=== PATIENT | male | born 1975 | race Native Hawaiian/Other Pacific Islander ===

== ENCOUNTER 2018-07-29 14:36 | Inpatient (IN) ==
[2018-07-29] MEDS ORDERED: XYLOCAINE-MPF 1% INJ ONE (15:20)
[2018-07-29] MEDS ORDERED: BOOSTRIX VACCINE IM ONE (15:21)
--- NOTE | 2018-07-29 15:43 | Diag Imaging Result Doc PS360 ---
EXAM: FINGER(S)-RIGHT - 07/29/2018 HISTORY: thumb wound x 2 weeks TECHNIQUE: Right thumb three views COMPARISON: None. FINDINGS: There are erosive/destructive changes along the ventral aspect of the distal phalanx of the thumb. This is suspicious for osteomyelitis of the distal phalanx. There is no fracture or dislocation identified. There is no discrete opaque foreign body identified. There is a small erosion at the medial base of the proximal phalanx of the final. This is of nonspecific age and may relate to inflammatory arthritis. IMPRESSION: Erosive/destructive changes along the ventral aspect of the distal phalanx of the thumb. This is suspicious for osteomyelitis of the distal phalanx. Small erosion at medial base of proximal phalanx of thumb of nonspecific age, possibly related to inflammatory arthritis. Electronically signed by Noe Dillard 07/29/2018 3:41 PM
[2018-07-29] MEDS ORDERED: CLINDAMYCIN 900 MG/NS 900 MG/50 ML IVPB IV ONE (16:24)
[2018-07-29] MEDS ORDERED: VANCOMYCIN 1 GM/NS 1 GM/250 ML IVPB IV ONE ×2 (16:27→18:00)
--- NOTE | 2018-07-29 16:32 | PROVIDER DOCUMENTATION ---
HPI-Rash/Wound/ReCheck - General Chief Complaint: Return W/Comp Stated Complaint: WORK RELATED INJURY Time Seen by Provider: 07/29/18 15:16 Source: patient Allergies/Adverse Reactions: Allergies Allergy/AdvReac Type Severity Reaction Status Date / Time No Known Allergies Allergy Verified 07/29/18 14:48 Home Medications: Home Medication List Medication Instructions Recorded Confirmed Last Taken Type Ibuprofen [Motrin] 800 mg PO Q8H PRN PRN #20 tablet 04/17/15 Unknown Rx Acetaminophen with Codeine 1 each PO Q4H PRN PRN #20 tablet 06/02/15 Unknown Rx [Tylenol with Codeine #3] Meloxicam [Mobic] 7.5 mg PO DAILY #30 tablet 06/02/15 Unknown Rx - History of Present Illness-Dermatology Nature of Presenting Problem: Pt is 43 yo male, states he cut 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 Denies fever. Denies n/v. States pain is severe. Location: reports: hands Timing: reports: still present, other (2 weeks ago) Review of Systems - Adult - REVIEW OF SYSTEMS - ADULT Constitutional: denies: fever Cardiovascular: denies: chest pain Respiratory: denies: shortness of breath Gastrointestinal: denies: nausea, vomiting Integumentary: reports: other (wound R thumb with drainage, swelling, pain) All Other Systems: Reviewed and Negative Past History - Adult - PAST MEDICAL HISTORY-ADULT Review of Records: reports: Old Records Reviewed, Nursing Assessment Review, Medications Reviewed Major Childhood Illnesses: reports: denies history - PRIOR SURGERIES/PROCEDURES Surgical/Procedure History: reports: other (stomach surgery) - IMMUNIZATION STATUS Childhood Immunizations: See Nurse Assessment Flu Vaccine: See Nurse Assessment Physical Exam-General - PHYSICAL EXAM-ADULT Initial Vital Signs Reviewed: Yes (elevated blood pressure) - CONSTITUTIONAL General Appearance: appears well, alert, no apparent distress - EYES Eyes: PERRL/EOMI, pink conjunctivae - HEAD, EARS, NOSE, MOUTH & THROAT HENMT: normocephalic/atraumatic, moist mucous membranes - NECK Neck: supple - RESPIRATORY Respiratory: lungs clear, normal breath sounds, no pleuratic chest pain, no respiratory distress, no accessory muscle use - CARDIOVASCULAR Cardiovascular: regular rate, rhythm, no gallop, no JVD, no murmur - SKIN Integumentary: normal color, normal turgor, warm/dry, ecchymosis, swelling, tenderness, warm, other (R thumb--1cm open wound to anterior distal tuft, purulent drainage, diffuse swelling and ecchymosis, tender, rom limited by pain and swelling) - NEUROLOGIC Neurologic: grossly normal - PSYCHIATRIC Psych/Mental Status: normal mood/affect, oriented x 3 Progress - PLAN OF CARE/RESULTS Progress/Plan/Lab Results: Vital Signs - 8 hr 07/29/18 14:43 07/29/18 16:43 Temperature 98.3 F Pulse Rate 89 Respiratory Rate 20 Blood Pressure 155/96 O2 Sat by Pulse Oximetry 100 Orders Category Date Time Status FINGER(S)-RIGHT [RAD] Stat Exams 07/29/18 15:24 Completed BLOOD CULTURE [BLDCUL] Stat Lab 07/29/18 16:24 Uncollected C REACTIVE PROT QUANT [CHEM] Stat Lab 07/29/18 16:23 Received CBC WITH ELECTRONIC DIFF [HEME] Stat Lab 07/29/18 16:25 Uncollected COMPREHENSIVE METABOLIC PANEL [CHEM] Stat Lab 07/29/18 16:24 Uncollected SED RATE [HEME] Stat Lab 07/29/18 16:23 Received WOUND CULTURE INC GRAM STAIN [RM] Stat Lab 07/29/18 16:24 Uncollected Clindamycin 900 mg/Ns Med 07/29/18 16:24 Active 900 mg in 50 ml IV NOW Diph,Pertuss(Acell),Tet Vac/Pf [Boostrix Vaccine] Med 07/29/18 15:21 Discontinued 0.5 ml IM .ONCE ONE Lidocaine 1% Pf [Xylocaine-Mpf 1%] Med 07/29/18 15:20 Discontinued 5 ml INJ NOW ONE Vancomycin 1 gm/Ns Med 07/29/18 16:27 Active 1 gm in 250 ml IV NOW - XRAY 1 XRAY: Right XRAY Study: Hand XRAY Interpretation: Patient: PRICE GAONA Date: 07/29/18MR#: [id number] - CONSULTS/PCP/HOSPITALIST Notification #1 *Consult/PCP/Hospitalist*: Ysabel WARD Time Discussed: 16:41 Reason/Comments: osteomyelitis, transfer to for poss washout vs amputation Consult Disposition: Admit #2 Consult: Junior Time Discussed: 16:50 Reason/Comments: hospitalist to admit Consult Disposition: Will see in ED Departure - Departure Date of Disposition Decision: 07/29/18 Time of Disposition Decision: 16:50 DIAGNOSIS: Osteomyelitis Disposition: ADMITTED INPATIENT 09 Certified Medical Emergency: Emergent Condition: Stable Referrals and Follow-Ups: None,PCP [Primary Care Provider] - - Critical Care Note This patient required my direct & personal management of CC.: No Attestation - Physician/ SIMONA Attestation Patient care was provided by Advanced Practice Provider:: Yes Advanced Practice Provider documentation review:: The Mid-level provider documentation, treatment plan and medical decision making was reviewed by the physician who agrees with all treatment and medical decision making by the MLP. The physician spent face to face time with patient:: No Advanced Practice Provider documentation review:: Supervising physician onsite and consulted in the evaluation and care of this patient. The physician did not have a face to face encounter with the patient.
[2018-07-29] MEDS ORDERED: MORPHINE IV ONE (16:52)
[2018-07-29] MEDS ORDERED: ZOFRAN IV ONE (16:52)
[2018-07-29 17:09] LABS: BASO# 0.06 X1000 (0.0-0.2); BASO% 0.7 % (0.0-0.8); EOS# 0.23 X1000 (0.0-0.7); EOS% 2.6 % (0.0-10.0); HEMATOCRIT 47.9 % (42.0-52.0); HEMOGLOBIN 15.3 g/dL (14.0-18.0); IMM GRAN# 0.06 X1000 (0.0-0.04); IMM GRAN% 0.7 % (0.0-0.5); LYMPH# 2.01 X1000 (1.2-3.4); LYMPH% 23.1 % (20.5-51.1); MCH 31.5 PG (27-31); MCHC 31.9 g/dL (33-37); MCV 98.6 FL (81-99); MONO# 0.79 X1000 (0.11-0.59); MONO% 9.1 % (1.7-9.3); NEUT# 5.54 X1000 (1.4-6.5); NEUT% 63.8 % (42.2-75.2); PLT 438 X1000 (130-400); RBC 4.86 XMIL (4.7-6.1); RDW 12.8 % (11.5-14.5); WBC 8.69 X1000 (4.8-10.8)
[2018-07-29] MEDS ORDERED: VANCOMYCIN IV PER PHARMACY MISC SCH (17:15)
[2018-07-29 17:17] LABS: AGAP 15; ALBUMIN 4.4 g/dL (3.5-5.0); ALKALINE PHOSPHATASE 93 U/L (32-122); BUN 13 mg/dL (8-22); CALCIUM 10.5 mg/dL (8.8-10.2); CHLORIDE 102 mmol/L (98-107); COSMO 291; CREATININE 0.9 mg/dL (0.7-1.2); ESTIMATED GFR > 60; GLUCOSE 144 mg/dL (70-104); GOT 24 U/L (10-34); GPT 51 U/L (10-44); POTASSIUM 4.5 mmol/L (3.5-5.1); SODIUM 145 mmol/L (136-145); TCO2 28 mmol/L (25-35); TOTAL PROTEIN 8.6 g/dL (6.3-8.3)
[2018-07-29] MEDS ORDERED: ZOFRAN IV PRN (19:36)
[2018-07-29] MEDS: NS 1,000 ML IV SCH (23:20)
[2018-07-29] MEDS: OFIRMEV 1000 MG/ISOTONIC SOLN 1,000 MG/100 ML BOTTLE IV SCH ×3 (23:27→23:33)
[2018-07-29] MEDS: ZOSYN 3.375 GM in NS 50 ML IV SCH ×2 (23:28→23:30)
[2018-07-29] MEDS: TORADOL IV SCH (23:28)
[2018-07-29] MEDS: PRILOSEC PO SCH (23:48)
--- NOTE | 2018-07-30 00:47 | HISTORY AND PHYSICAL ---
CHIEF COMPLAINT: Infection of the right thumb. HISTORY OF PRESENT ILLNESS: This is a 43-year-old male, with an unremarkable past medical history, who came to the emergency department complaining of right thumb. 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 He received apparently some antibiotics at the company where he works. Apparently, he reported he was not allowed to seek for medical attention. Today, he comes because the pain is unbearable. He denies any fever, denies any chills. He states the pain is very bad. On evaluation in the ER, revealed possible osteomyelitis of the right thumb. PAST MEDICAL HISTORY: Unremarkable. PAST SURGICAL HISTORY: None. FAMILY HISTORY: Noncontributory. ALLERGIES: The patient denies any allergies. REVIEW OF SYSTEMS: Eleven systems were reviewed, and all symptoms are related to H and P. PHYSICAL EXAMINATION: VITAL SIGNS: Temperature 98.3 degrees, heart rate 77, respiratory rate 18, blood pressure 123/80, oxygen saturation 100% on room air. GENERAL: This is a 43-year-old male, lying in bed, in no acute distress. HEENT: Head is normocephalic, atraumatic. NECK: No JVD noted. No carotid bruits. No lymphadenopathy. No thyromegaly. CARDIOVASCULAR: S1-S2 heard. No murmurs, gallops, or rubs. Regular rate and rhythm. RESPIRATORY: Clear bilaterally to auscultation. No work of breathing or using accessory muscles. ABDOMEN: Soft. Nontender to palpation. Bowel sounds present. No organomegaly. EXTREMITIES: The right thumb is covered by a dressing. It is very painful to palpation. No drainage coming out. LABORATORY DATA: White cell count is normal. CBC and BMP are normal. Finger x-ray showed erosive and destructive changes along the ventral aspect of the distal phalanx of the thumb, suspicious of osteomyelitis. ASSESSMENT AND PLAN: 1. Possible osteomyelitis of the right thumb. The patient is going to be transferred to [facility] for evaluation for an orthopedic doctor. We are going to order an MRI of that thumb to confirm the diagnosis. There is a possibility that this patient needs to be amputated. We will leave that decision to Orthopedics. From a medical standpoint, we will start on vancomycin and Zosyn. We will provide also pain medication, and will monitor this patient closely. 2. Blood culture has been drawn. cc: Octavio Moreno MD
--- NOTE | 2018-07-30 03:33 | CONSULTATION ---
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 Patient works [employer] in [place]. States he has had worsening symptoms, continued swelling and drainage. He complains the pain as being severe. He denies any fever. He presented to [facility] and underwent evaluation, and x-rays were obtained, and revealed suspicion for osteomyelitis to the distal phalanx. Given the patient's clinical and radiographic findings, he was transferred to [facility] for further orthopedic evaluation and treatment. HOME MEDICATIONS: None. ALLERGIES: No known drug allergies. PAST MEDICAL HISTORY: None. PAST SURGICAL HISTORY: Stomach surgery as a child. PHYSICAL EXAMINATION: Patient is awake, alert, and cooperative with exam. His right thumb dressing was removed. He has approximately a centimeter wound along the volar radial aspect of his thumb, just about mid level to the distal phalanx. He has significant purulent drainage, significant swelling about the thumb, significant tenderness to palpation. He has paresthesia along the thumb. He has significant pain with any movement of the thumb. He is able to minimally flex and extend his thumb. The swelling extends down to the base of the proximal flexion crease. On the remaining fingers, he is able to flex and extend his fingers. RADIOLOGY: X-rays were reviewed and did reveal some erosive changes along the ventral aspect of the distal phalanx of the thumb suspicious for osteomyelitis. IMPRESSION: Infection, right thumb with possible osteomyelitis to the distal phalanx. PLAN: At this point, discussed treatment options with the patient. At this time, he has been placed on IV antibiotics appeared. Will plan on proceeding with incision and drainage of his thumb tomorrow. Risks and benefits of surgery were explained, including the risks of anesthesia, , bleeding, infection, failure to relieve pain, postoperative stiffness, nerve injury, blood clots, and other imponderables. All questions were answered. The patient agrees to treatment plan. cc: Uli Grady MD
[2018-07-30] MEDS: ZOSYN 3.375 GM in NS 50 ML IV SCH ×3 (03:44→10:34)
[2018-07-30] MEDS: OFIRMEV 1000 MG/ISOTONIC SOLN 1,000 MG/100 ML BOTTLE IV SCH ×5 (05:39→23:00)
[2018-07-30] MEDS: TORADOL IV SCH ×4 (05:40→23:00)
[2018-07-30 07:04] LABS: BASO# 0.08 X1000 (0.0-0.2); BASO% 0.8 % (0.0-0.8); EOS# 0.44 X1000 (0.0-0.7); EOS% 4.5 % (0.0-10.0); HEMATOCRIT 41.2 % (42.0-52.0); HEMOGLOBIN 13.1 g/dL (14.0-18.0); IMM GRAN# 0.08 X1000 (0.0-0.04); IMM GRAN% 0.8 % (0.0-0.5); LYMPH% 24.5 % (20.5-51.1); MCH 31.7 PG (27-31); MCHC 31.8 g/dL (33-37); MCV 99.8 FL (81-99); MONO# 1.11 X1000 (0.11-0.59); MONO% 11.3 % (1.7-9.3); NEUT% 58.1 % (42.2-75.2); PLT 395 X1000 (130-400); RBC 4.13 XMIL (4.7-6.1); RDW 12.8 % (11.5-14.5); WBC 9.81 X1000 (4.8-10.8)
[2018-07-30] MEDS: NS 1,000 ML IV SCH (07:43)
[2018-07-30 07:48] LABS: AGAP 9; BUN 13 mg/dL (8-22); CALCIUM 8.7 mg/dL (8.8-10.2); CHLORIDE 102 mmol/L (98-107); COSMO 280; ESTIMATED GFR > 60; GLUCOSE 113 mg/dL (70-104); POTASSIUM 4.8 mmol/L (3.5-5.1); SODIUM 140 mmol/L (136-145); TCO2 29 mmol/L (25-35)
[2018-07-30] MEDS: PRILOSEC PO SCH (09:07)
--- NOTE | 2018-07-30 10:32 | Diag Imaging Result Doc PS360 ---
MRI UPPER EXT W/WO CONT-RIGHT - 07/30/2018 INDICATION: osteomyelitis TECHNIQUE: MRI right hand without and with intravenous contrast COMPARISON: X-ray series from 07/29/2018 FINDINGS: At the pad of the distal phalanx of the thumb, there is a small irregular soft tissue fluid collection extending all the way to the surface of the distal phalanx. This measures about 15 x 10 mm maximally. There is surrounding soft tissue cellulitis with enhancement. The distal phalanx of the thumb demonstrates diffuse hyperintense signal and enhancement. In addition, there is cortical erosion of the volar surface adjacent to the fluid collection. No fracture or dislocation. The proximal phalanx is uninvolved. The tendons appear grossly normal. IMPRESSION: Osteomyelitis of the distal phalanx of the thumb. Adjacent periosteal abscesses. Soft tissue cellulitis. Electronically signed by Adriano Pulido 07/30/2018 10:30 AM
[2018-07-30] MEDS ORDERED: D5 1/2 NS + KCL 20 MEQ 1,000 ML IV SCH (11:15)
--- NOTE | 2018-07-30 11:17 | PROGRESS NOTE ---
DATE: 07/30/2018 SUBJECTIVE: This morning, Mr. Hansen refers to be doing fairly okay. Still having some pain in the right thumb. OBJECTIVE: Vital Signs: Blood pressure is 115/64, pulse is 55, respirations are 21, temperature is 98.5 degrees. General Examination: Mr. Hansen is a 43-year-old, gentleman. He is in bed, no distress. HEENT: Mucosa is pink and moist. Anicteric. Acyanotic. Neck: Supple. Chest: Clear to auscultation. There were no crepitations, no rhonchi. Cardiovascular: Regular rate and rhythm. No murmurs, no rubs, no gallops. Abdomen: Soft, nontender. Bowel sounds present. Extremities: No pedal edema. BAND TACKER: The patient is awake, alert, and oriented. Musculoskeletal: The right thumb is remarkably more swollen generally. There is a small open wound on the ventral aspect of the thumb. There is a small purulent discharge coming out and it is remarkably tender to touch. Laboratory Data: Has been reviewed. WBC is 9.81, hemoglobin is 13.1, platelet count of 395,000. Chemistry is also reviewed, unremarkable. An x-ray of the finger did show erosive destruction along the ventral aspect of the distal phalanx of the thumb, suspicious for osteomyelitis. An MRI of the extremity shows osteomyelitis of the distal phalanx with the thumb. There is also adjacent subperiosteal abscess. ASSESSMENT: 1. Osteomyelitis of the right thumb associated with periosteal abscess and cellulitis. Patient is currently on intravenous antibiotics (vancomycin and Zosyn). Has been evaluated by orthopedics and there is a plan for surgical exploration tomorrow. 2. Tobacco abuse. Patient has been counseled. 3. Mild clinical volume depletion. Patient is on intravenous hydration. cc: Bennie Leon MD
[2018-07-30] MEDS: VANCOMYCIN 1,600 MG in NS 250 ML IV SCH ×2 (11:22→23:50)
[2018-07-30] MEDS ORDERED: XYLOCAINE-MPF 2% ONE (12:18)
[2018-07-30] MEDS ORDERED: DIPRIVAN 1% ONE (12:20)
[2018-07-30] MEDS ORDERED: NEOSPORIN G.U. IRRIGANT ONE (13:00)
[2018-07-30] MEDS ORDERED: FENTANYL ONE (13:56)
[2018-07-30] MEDS: DILAUDID ONE ×4 (14:31→14:59)
[2018-07-30] MEDS ORDERED: MORPHINE IV PRN (15:55)
[2018-07-30] MEDS ORDERED: ZOFRAN PO PRN (15:55)
[2018-07-30] MEDS: OXY IR PO PRN ×2 (16:27→23:14)
[2018-07-30] MEDS: PERIDEX MT SCH (22:56)
--- NOTE | 2018-07-31 01:43 | OPERATIVE NOTE ---
PROCEDURE DATE: 07/30/2018 PREOPERATIVE DIAGNOSIS: Infection, with osteomyelitis of the distal phalanx, the right thumb. POSTOPERATIVE DIAGNOSIS: Infection, with osteomyelitis of the distal phalanx, the right thumb. PROCEDURE: Incision and drainage, right thumb. SURGEON: Ysabel. DOOR CAPTAIN: Gelnny Kaplan. ANESTHESIA: General. IV FLUIDS: 500 mL lactated Ringer's. ESTIMATED BLOOD LOSS: 5 mL. TOURNIQUET TIME: 25 minutes at 250 mmHg. COMPLICATIONS: None. INDICATION: The patient is a pleasant 43-year-old male, status post cut to his right thumb approximately 2 weeks ago while at work at [employer] in [place]. He has had worsening swelling and drainage from his right thumb. He presented to the emergency room yesterday. He was admitted to the hospital, and placed on IV antibiotics. An orthopedic consultation was requested. X-rays revealed some erosion on the volar aspect of the distal phalanx, suspicious for osteomyelitis, which was confirmed with MRI results. A recommendation to proceed with incision and drainage was offered. Risks and benefits of surgery were explained, including the risks of anesthesia, , bleeding, infection, failure to relieve pain, postoperative stiffness, nerve injury, blood clots, and other imponderables. All questions were answered. The patient agreed with the treatment plan. DETAILS OF OPERATION: The patient was taken to the operating room, placed supine on the operating table. Once adequate anesthesia was obtained, the patient's right upper extremity was subsequently prepped and draped in the usual sterile fashion. After elevation of the right upper extremity, the tourniquet was inflated to 250 mmHg. The patient had a wound on the volar radial aspect of the pulp, just distal to the DIP joint. There was purulent drainage at this site. A Kavon-type incision was made in standard fashion, extending distally and proximally over the proximal phalanx as well. Intraoperative cultures were obtained. Patient had significant necrotic tissue in the volar pulp. It tracked to the distal phalanx, and had some cortical erosion and small bone fragments. This was debrided at the bone. After this had been performed, copious irrigation performed with antibiotic irrigation, as well as a Vashe irrigation. After this had been performed, a small iodoform packing was packed into the wound site. The skin was loosely reapproximated with 4-0 nylon. Adaptic, sterile 4x4s, Webril, Florencio, and Mitch wrap was applied to the right upper extremity. The patient tolerated the procedure well, with no complications. Transferred to the recovery room in stable condition. cc: Uli Grady MD
--- NOTE | 2018-07-31 04:46 | INFECTIOUS DISEASE CONSULT REP ---
DATE: 07/30/2018 CONCLUSION: The patient has a presumptive methicillin-resistant Staph aureus, right thumb osteomyelitis and associated bacteremia. RECOMMENDATIONS: I agree with decision to treat the patient with vancomycin. The newest recommendation is to treat for methicillin-resistant Staph aureus osteomyelitis for a total of 8 weeks, which I plan on doing. DISCUSSION: The patient was unable to provide a history, and there was no additional history in the computer. 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 This happened approximately 2 weeks ago. His thumb became swollen, red, and painful. He underwent surgery by Dr. Grady today on the thumb. A culture taken from the patient's thumb and from the blood is growing MRSA. The patient's CBC shows a white count of 9810, hemoglobin 13.1, and platelet count 395,000. Creatinine is 1. GFR is greater than 60. The ALT is 51. MRI of the right hand shows distal osteomyelitis of the right thumb. MEDICATIONS: The patient is not on any home medications. ALLERGIES: He has no known drug allergies. PAST MEDICAL HISTORY: Unknown date. PAST SURGICAL HISTORY: The patient told me that he had appendicitis, and that was the reason for the surgery. PHYSICAL EXAMINATION: Vital Signs: Temperature is 98 degrees, pulse is 62, respirations 14, blood pressure 138/72. Patient is 5 feet 6 inches tall, and weighs 159 pounds. General: This is a fairly healthy-appearing, middle-aged male. He is complaining that he is having pain in his thumb. Head/eyes/ears/nose/throat: He can hear my spoken words and see near objects. Neck: No stiffness. Lungs: Clear to auscultation. Cardiovascular: Regular heart rate. Abdomen: Soft and not tender. Extremities: The right thumb has a dressing around it. The dressing is intact. Neurologic: The patient was lethargic. He did not answer questions. He did move his extremities to request. There was no tremor. Thank you for the consult. cc: Temo Hughes MD MTDD
[2018-07-31] MEDS: TORADOL IV SCH ×5 (05:13→23:28)
[2018-07-31] MEDS: OXY IR PO PRN ×3 (05:13→16:51)
[2018-07-31] MEDS: OFIRMEV 1000 MG/ISOTONIC SOLN 1,000 MG/100 ML BOTTLE IV SCH ×5 (05:15→23:28)
[2018-07-31 06:17] LABS: BASO# 0.08 X1000 (0.0-0.2); EOS% 3.9 % (0.0-10.0); HEMATOCRIT 42.1 % (42.0-52.0); HEMOGLOBIN 13.6 g/dL (14.0-18.0); IMM GRAN# 0.09 X1000 (0.0-0.04); IMM GRAN% 1.2 % (0.0-0.5); LYMPH# 1.31 X1000 (1.2-3.4); LYMPH% 17.2 % (20.5-51.1); MCH 32.1 PG (27-31); MCHC 32.3 g/dL (33-37); MCV 99.3 FL (81-99); MONO# 0.74 X1000 (0.11-0.59); MONO% 9.7 % (1.7-9.3); MPV 10.2 FL (7.4-10.4); PLT 361 X1000 (130-400); RBC 4.24 XMIL (4.7-6.1); RDW 12.6 % (11.5-14.5); WBC 7.62 X1000 (4.8-10.8)
[2018-07-31 06:37] LABS: AGAP 10; BUN 9 mg/dL (8-22); CHLORIDE 104 mmol/L (98-107); COSMO 283; CREATININE 0.8 mg/dL (0.7-1.2); ESTIMATED GFR > 60; GLUCOSE 117 mg/dL (70-104); POTASSIUM 3.9 mmol/L (3.5-5.1); SODIUM 142 mmol/L (136-145); TCO2 28 mmol/L (25-35)
--- NOTE | 2018-07-31 08:15 | PROGRESS NOTE ---
DATE: 07/31/2018 SUBJECTIVE: Mr. Hansen is a 43-year-old male, who is postoperative day 1 from a right thumb incision and drainage. He is complaining of some throbbing pain at this time, but overall he is doing well. OBJECTIVE: General: He is a well developed, well nourished male. He is alert, oriented, and cooperative with the examination. He is in no acute distress. Vital Signs: Stable. He is afebrile. Extremities: His right thumb dressing is clean, dry, and intact. LABS: His Gram stain revealed gram-positive cocci. His white count is 7.2. ASSESSMENT: Stable postoperative day 1 from a right thumb incision and drainage. PLAN: We will have him keep his dressing on, and we will plan to change dressing tomorrow. We will have him continue his IV antibiotics per Dr. Hughes. Dictated by KENDAL Morin for Uli Grady MD cc: KENDAL Morin MD
[2018-07-31] MEDS: PRILOSEC PO SCH (08:56)
[2018-07-31] MEDS: PERIDEX MT SCH ×2 (08:58→23:29)
[2018-07-31] MEDS: VANCOMYCIN 1,600 MG in NS 250 ML IV SCH (12:39)
--- NOTE | 2018-07-31 14:18 | INFECTIOUS DISEASE PROGRESS NO ---
DATE: 07/31/2018 PRESENT ILLNESS: The patient has a methicillin-resistant Staph aureus, right thumb osteomyelitis and an associated methicillin-resistant Staph aureus bacteremia. MEDICATIONS: The patient is receiving vancomycin. The first day of treatment with vancomycin is the first day that the patient's repeat blood cultures are sterile. PHYSICAL EXAMINATION: Vital Signs: Temperature is 99, pulse 67, respirations 20, blood pressure 131/79. Generally, this is a fairly healthy-appearing, middle-aged male. He is in no acute distress. Head, eyes, ears, nose, and throat: He can hear my spoken words and see near objects. He does not have any white coating on his tongue. Neck: No meningismus. Lungs clear to auscultation. Cardiovascular: Heart rate is regular. Abdomen soft and nontender. Extremities: The patient's right thumb has a large dressing around it. The dressing is intact. Neurologic: Patient is alert. He can move his extremities. There is no tremor. LABORATORY DATA AND X-RAY: There is no new radiographic study. The patient's CBC shows a white count of 7620, hemoglobin 13.6, and platelet count 361,000. Creatinine is 0.8. GFR is greater than 60. ASSESSMENT AND PLAN: The patient has methicillin-resistant Staphylococcus aureus osteomyelitis and bacteremia. My plan is to continue vancomycin. I am also ordering now repeat blood cultures, and I have also ordered an echocardiogram to be done to check for vegetations on the valves which would indicate endocarditis. 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 cc: Temo Hughes MD
--- NOTE | 2018-07-31 15:39 | PROGRESS NOTE ---
DATE: 07/31/2018 SUBJECTIVE: This morning Mr. Hansen refers to be doing fairly okay. Denies any complaint except some pains in his thumb. OBJECTIVE: Vital Signs: Blood pressure is 131/79, pulse is 67, respirations 20 , temperature is 99.0. General: Mr. Hansen is a 43-year-old gentleman. He was in bed in no distress. Mucosa is pink and moist. Anicteric. Acyanotic. Neck: Supple. Chest: Good air entry bilaterally. There are no crepitations, no rhonchi. Cardiovascular: Regular rate and rhythm. No murmurs, no rubs, no gallops. Abdomen: Soft, nontender. Bowel sounds are present. Extremities: No pedal edema. Distal pulses are present. Central Nervous System: Patient is awake, alert, oriented. There is no focal neurological deficit. Musculoskeletal: The right thumb is currently in sterile dressing after the surgery. LABORATORY DATA: WBC 7.62, hemoglobin is 13.6, platelet count of 361,000. Chemistry is also reviewed. It is completely normal. Review of the surgical note yesterday: An incision and drainage of the right thumb was done. There was also some debridement at the bone, as per the surgical notes. Blood cultures have been positive, 2/2 gram positive cocci. The right thumb shows MRSA. The surgical specimen also showing gram positive cocci, likely MRSA as well. Blood cultures have been repeated today. ASSESSMENT: 1. Sepsis secondary to osteomyelitis of the right thumb 2. MRSA bacteremia, source from the right thumb osteomyelitis. The patient is on IV vancomycin as per pharmacy protocol and ID has been consulted. 3. Osteomyelitis of the right thumb associated with periosteal abscess and cellulitis. The patient is status post I D with bone debridement as well. 4. Tobacco abuse. Patient has been counseled. 5. Clinical volume depletion, improved. PLAN: So, in general, I think Mr. Hansen is doing fairly okay. Today is day #1 post I D of the right thumb osteomyelitis. Blood cultures and wound cultures are all showing MRSA. The patient is on IV antibiotics. Blood cultures have been repeated. We will wait to see the repeat culture. If it is negative, I think patient will would need probably a PICC line for an extended IV antibiotics for the osteomyelitis and the bacteremia. cc: Bennie Leon MD MTDD
[2018-07-31] MEDS: DILAUDID IV PRN (23:29)
[2018-08-01] MEDS: VANCOMYCIN 1,600 MG in NS 250 ML IV SCH ×3 (00:32→23:24)
[2018-08-01] MEDS: OFIRMEV 1000 MG/ISOTONIC SOLN 1,000 MG/100 ML BOTTLE IV SCH ×4 (05:22→23:24)
[2018-08-01] MEDS: TORADOL IV SCH ×2 (05:23→12:21)
[2018-08-01] MEDS: DILAUDID IV PRN ×4 (05:23→18:03)
[2018-08-01 06:05] LABS: BASO# 0.09 X1000 (0.0-0.2); BASO% 1.5 % (0.0-0.8); EOS# 0.26 X1000 (0.0-0.7); EOS% 4.3 % (0.0-10.0); HEMATOCRIT 38.1 % (42.0-52.0); HEMOGLOBIN 12.3 g/dL (14.0-18.0); IMM GRAN# 0.06 X1000 (0.0-0.04); LYMPH# 1.44 X1000 (1.2-3.4); LYMPH% 23.8 % (20.5-51.1); MCH 31.8 PG (27-31); MCHC 32.3 g/dL (33-37); MCV 98.4 FL (81-99); MONO# 0.66 X1000 (0.11-0.59); MONO% 10.9 % (1.7-9.3); MPV 9.7 FL (7.4-10.4); NEUT# 3.53 X1000 (1.4-6.5); NEUT% 58.5 % (42.2-75.2); PLT 372 X1000 (130-400); RBC 3.87 XMIL (4.7-6.1); RDW 12.2 % (11.5-14.5); WBC 6.04 X1000 (4.8-10.8)
[2018-08-01 06:20] LABS: AGAP 12; BUN 11 mg/dL (8-22); CALCIUM 8.3 mg/dL (8.8-10.2); CHLORIDE 103 mmol/L (98-107); COSMO 280; CREATININE 0.7 mg/dL (0.7-1.2); ESTIMATED GFR > 60; GLUCOSE 160 mg/dL (70-104); POTASSIUM 3.8 mmol/L (3.5-5.1); SODIUM 139 mmol/L (136-145); TCO2 24 mmol/L (25-35)
--- NOTE | 2018-08-01 09:52 | INFECTIOUS DISEASE PROGRESS NO ---
DATE: 08/01/2018 PRESENT ILLNESS: The patient has a right thumb osteomyelitis with an associated methicillin-resistant Staph aureus bacteremia. MEDICATIONS: He is receiving IV vancomycin, per pharmacy dosing. Day 1 of treatment will be his first day of sterile blood cultures. PHYSICAL EXAM: Vital Signs: Temperature is 98.5 degrees, pulse rate 62, respiratory rate 18, blood pressure 113/58, O2 saturation is 100% on room air. General: This is a fairly healthy-appearing, middle-aged gentleman, who is lying in the bed drowsy and lethargic in no acute distress. HEENT: Atraumatic, normocephalic. Oral mucous membranes are pink and moist. Conjunctivae are pink. Neck: Supple. Trachea is midline. Cardiovascular: Heart rate is regular. Radial and pedal pulses are +2 bilaterally. Respiratory: Lung sounds are clear to auscultation. Abdomen: Soft, round, and nontender. Bowel sounds are active. Integumentary: Skin is warm and dry. There is a dressing to the right thumb and hand without any notable edema or erythema surrounding and no drainage on the dressing. Neurologic: He is drowsy and lethargic, but arousable and oriented, able to ambulate independently. LABORATORY AND X-RAY: Today his white count is 6.04, hemoglobin 12.3 platelet count 372,000. Creatinine is 0.7. Estimated GFR is greater than 60. His blood and right thumb cultures have both grown methicillin-resistant Staph aureus. There is an another culture with the same bacteria presumed on preliminary report. There is 1 set of blood cultures that was drawn yesterday and it is preliminary. No imaging reports today. ASSESSMENT AND PLAN: Mr. Hansen has a right thumb methicillin-resistant Staphylococcus aureus infection with an associated bacteremia. He is receiving vancomycin which we will continue at this point. We are awaiting results of the final blood cultures to be negative for start date of treatment. There is also a pending echocardiogram to check for vegetation. These plans have been discussed with and recommended by Dr. Hughes. COMORBIDITIES: Unremarkable. Dictated by TESSA Shafer for Temo Hughes MD This chart was documented by, TESSA Shafer and accurately reflects the services performed, treatment plan and medical decisions as attested by the providers signature Temo Hughes MD. cc: Temo Hughes MD MTDD
--- NOTE | 2018-08-01 10:32 | ECHO REPORT ---
ORDER DATE: 07/31/2018 ECHOCARDIOGRAPHIC MEASUREMENTS: 1. Left ventricular end-diastolic diameter 4.6. 2. End-systolic diameter 2.5. 3. Septal thickness 0.8. 4. Posterior wall thickness 0.8. 5. Aortic root 2.6. 6. Left atrium 3.1. SUMMARY: 1. Adequate quality study. 2. Aortic valve is trileaflet and opens normally on 2-dimensional images. Peak gradient across the aortic valve is approximately 10 mmHg. Mitral, tricuspid, and pulmonic valves are without evidence of structural abnormality with mild tricuspid regurgitation and very mild pulmonic insufficiency. The estimated systolic PA pressure by Doppler is 30 to 35 mmHg. Aortic root is normal in size. 3. Normal left ventricular chamber size and wall thickness demonstrated. Estimated left ventricular ejection fraction appears to be at least 65%. No regional wall motion abnormalities are evident. Left atrium, right atrium, right ventricle are normal in size with normal right ventricular systolic function. 4. No pericardial effusion. 5. Appearance of inferior vena cava suggests normal central venous pressure. CONCLUSIONS: 1. Adequate quality study. 2. Mild tricuspid regurgitation with estimated systolic PA pressure 30 35 mmHg. 3. Normal left ventricular function without regional wall motion abnormality evident. cc: MD Temo Beck MD
[2018-08-01] MEDS: PRILOSEC PO SCH (11:00)
[2018-08-01] MEDS: PERIDEX MT SCH ×2 (11:01→23:25)
--- NOTE | 2018-08-01 14:04 | PROGRESS NOTE ---
DATE: 08/01/2018 SUBJECTIVE: The patient is a 43-year-old male who is 2 days status post I and D for a osteomyelitis of the right thumb. He is currently resting comfortably. PHYSICAL EXAMINATION: The patient is afebrile. His right upper extremity dressing was changed. He continues with some purulent drainage from the wound. Some of the iodoform packing was removed. It was then cleansed and redressed. He continues with paresthesia along the tip of his thumb. He has very minimal to no movement of the thumb and diffuse swelling. LABORATORY DATA: Wound culture revealed MRSA, as well as his blood cultures. IMPRESSION: Postoperative day #2 status post incision and debridement of right thumb for osteomyelitis. PLAN: At this point, the patient will continue with his IV antibiotics per Dr. Hughes. Will change his dressing on Saturday. cc: Uli Grady MD
--- NOTE | 2018-08-01 16:05 | PROGRESS NOTE ---
DATE: 08/01/2018 SUBJECTIVE: This morning Mr. Hansen refers to be doing fairly okay. Did not really have any complaints, except for some pains in the right thumb. OBJECTIVE: Vital Signs: Stable blood pressure is 136/78, pulse is 62, respiration is 19 and temperature is 98.5 degrees. The patient was saturating 99% on room air. General Exam: Mr. Hansen is a 43-year-old gentleman. He is in bed, no distress. HEENT: Mucosa is pink and moist. Anicteric. Acyanotic. Neck: Supple. Chest: Clear to auscultation. Cardiovascular: Regular rate and rhythm. There were no murmurs, no rubs, no gallops. Abdomen: Soft, nontender. Bowel sounds present. Extremities: No pedal edema. CLINICAL REGISTERED NURSE: Patient is awake, alert, oriented. There is no focal neurological deficit. Musculoskeletal: The right thumb is still in sterile dressing. LABORATORY DATA: WBC is 6.04, hemoglobin is 12.3, platelet count of 372. Chemistry is also reviewed, which is completely normal. The blood culture is positive 2/2 MRSA. The right thumb, both the swab and the surgical specimen, is positive for MRSA as well. ASSESSMENT: 1. Sepsis on presentation secondary to right thumb osteomyelitis. 2. Methicillin-resistant Staphylococcus aureus bacteremia from the right thumb osteomyelitis. 3. Osteomyelitis of right thumb associated with periosteal abscess and cellulitis. The patient is status post incision, drainage, and bone debridement. Today is day 2 postoperatively. The patient is being seen by Orthopedics and Infectious Disease as well. 4. Tobacco abuse. Patient has been counseled. 5. Clinical volume depletion, improved. PLAN: So, in general, today is day 2 post I and D and bone debridement for the osteomyelitis. The patient is also on vancomycin; today is day 3. He seems to be clinically stable. Blood cultures have been repeated since yesterday. We are pending for the final report and then get a PICC line for outpatient therapy. cc: Bennie Leon MD
[2018-08-01] MEDS: OXY IR PO PRN (23:25)
[2018-08-02] MEDS: DILAUDID IV PRN ×6 (00:25→21:52)
[2018-08-02] MEDS: OFIRMEV 1000 MG/ISOTONIC SOLN 1,000 MG/100 ML BOTTLE IV SCH ×3 (06:00→17:48)
[2018-08-02] MEDS: PRILOSEC PO SCH (08:07)
[2018-08-02] MEDS: PERIDEX MT SCH ×3 (08:08→21:54)
--- NOTE | 2018-08-02 09:25 | PROGRESS NOTE ---
DATE: 08/02/2018 SUBJECTIVE: This morning, Mr. Hansen refers to be doing a whole lot better. Denies any complaints. No fever. OBJECTIVE: Vital Signs: Blood pressure is 129/75, pulse is 68, respirations 16, temperature is 98.4. On general exam, Mr. Hansen is a 43-year-old -[place] gentleman. He was in bed in no distress. Mucosa is pink and moist. Anicteric. Acyanotic. Neck is supple. Chest: Good air entry bilaterally. There were no crepitations. No rhonchi. Cardiovascular: Regular rate and rhythm. No murmurs, no rubs, no gallops. GI: Abdomen was soft, nontender. Bowel sounds present. Extremities: No pedal edema. FLORIST MANAGER: Patient is awake, alert, and oriented. Musculoskeletal: The right thumb is still in a sterile dressing. LABORATORY DATA: None for today. MICROBIOLOGY DATA: Blood cultures have come back 48 hours negative after the first positive cultures. ASSESSMENT: 1. Sepsis on presentation secondary to right thumb skin, soft tissue, and bone infection. 2. Methicillin-resistant Staphylococcus aureus bacteremia. Source of infection is from the right thumb osteomyelitis. The patient is currently on vancomycin. Repeat blood cultures have been negative. 3. Osteomyelitis of the right thumb associated with periosteal abscess and cellulitis. Patient is status post incision and drainage with bone debridement. Today is date 3 postop. Orthopedics is on board. 4. Tobacco abuse. Patient has been counseled. 5. Clinical volume depletion, improved. In general, Mr. Wall is doing fairly okay. He is status post day 3 of I and D of the right thumb with some bone removal as well. So far, the bone culture as well as the blood culture shows MRSA. Repeat blood cultures have been negative. We consult PICC line team to put in a PICC line for long-term antibiotic therapy. cc: Bennie Leon MD
[2018-08-02 12:23] LABS: INR 0.88; PROTIME 12.7 Seconds (11.0-16.0)
[2018-08-02] MEDS: VANCOMYCIN 1,600 MG in NS 250 ML IV SCH (12:29)
--- NOTE | 2018-08-02 13:27 | PROGRESS NOTE ---
DATE: 08/02/2018 SUBJECTIVE: Mr. Hansen is a 43-year-old male, who underwent an irrigation debridement of his right thumb 2 days ago. He has no new complaints. OBJECTIVE: He is a well-developed, well-nourished male. He is alert and cooperative with exam. He appears comfortable. His dressing is clean, dry, and intact. ASSESSMENT: Stable right thumb incision and drainage. PLAN: We will plan on continuing his IV antibiotics. We will plan on changing his dressing either tomorrow or Saturday. cc: Ethan Le MD
[2018-08-02] MEDS: OXY IR PO PRN ×2 (13:43→17:48)
[2018-08-03] MEDS: OXY IR PO PRN ×3 (00:56→17:27)
[2018-08-03] MEDS: VANCOMYCIN 1,600 MG in NS 250 ML IV SCH ×3 (00:57→23:34)
[2018-08-03] MEDS: OFIRMEV 1000 MG/ISOTONIC SOLN 1,000 MG/100 ML BOTTLE IV SCH ×4 (00:57→17:27)
[2018-08-03] MEDS ORDERED: NS 500 ML IV SCH (01:00)
[2018-08-03] MEDS: DILAUDID IV PRN ×6 (05:34→23:36)
[2018-08-03] MEDS: PRILOSEC PO SCH (09:05)
[2018-08-03] MEDS: PERIDEX MT SCH ×2 (09:05→20:13)
--- NOTE | 2018-08-03 10:59 | PROGRESS NOTE ---
DATE: 08/03/2018 SUBJECTIVE: Mr. Hansen is a 43-year-old male, a patient of Dr. Grady, who has osteomyelitis of his thumb. He has no complaints. States he is doing well. OBJECTIVE: He is a well-developed, well-nourished male. He is alert, oriented, and cooperative with the exam. He is very comfortable. His dressing is clean, dry, and intact. ASSESSMENT: Stable right thumb. PLAN: Dr. Grady plans on changing the dressing tomorrow. He will continue current IV antibiotic protocol. cc: Ethan Le MD
[2018-08-03] MEDS ORDERED: NS 250 ML ONE (11:01)
--- NOTE | 2018-08-03 12:12 | PROGRESS NOTE ---
DATE: 08/03/2018 SUBJECTIVE: This morning Mr. Hansen refers to be doing fairly okay. Did not really have any complaints. OBJECTIVE: Vital signs: Blood pressure is 139/76, pulse is 56, respirations 16 , temperature 98.7 degrees. General: Mr. Hansen is a 43-year-old gentleman. He is in bed, no distress. HEENT: Mucosa is pink and moist. Anicteric. Acyanotic. Neck: Supple. Respiratory System: There is good air entry bilaterally. No crepitations. No rhonchi. Cardiovascular: Regular rate and rhythm. No murmurs. No rubs. No gallops. [place] beat is at 5th intercostal space, midclavicular line. GI: Abdomen is soft. It is nontender. Bowel sounds present. No hepatosplenomegaly. Extremities: No pedal edema. Distal pulses present. BEAN SPROUT GROWER : Patient is awake, alert, and oriented. There is no focal neurological deficit. Musculoskeletal: The right thumb is still in a sterile dressing. We are be pending Orthopedics to review the wound. LABORATORY: So far repeat blood cultures show no growth for 48 hours. ASSESSMENT: 1. Sepsis on presentation secondary to right palm infection. 2. Methicillin-resistant Staphylococcus aureus thumb infection with bacteremia. Patient is currently on vancomycin and repeat blood cultures have all been negative. 3. Osteomyelitis of the right thumb associated with periosteal abscess and cellulitis. Patient is status post I D; today is day 4. Orthopedics is on board. We are pending their further recommendations. 4. Tobacco abuse. Patient has been counseled. We will also recommend nicotine patch. 5. Clinical volume depletion, resolved. PLAN: So in general, I think Mr. Hansen is stable. Repeat blood cultures are negative, so we have ordered a PICC line and we are waiting ID's further recommendations as to the length of therapy. cc: Bennie Leon MD MTDD
[2018-08-03] MEDS: NICODERM PATCH TD SCH (12:20)
[2018-08-04] MEDS: OFIRMEV 1000 MG/ISOTONIC SOLN 1,000 MG/100 ML BOTTLE IV SCH ×3 (01:00→12:29)
[2018-08-04 05:56] LABS: INR 0.93; PROTIME 13.2 Seconds (11.0-16.0)
[2018-08-04] MEDS: DILAUDID IV PRN (06:36)
--- NOTE | 2018-08-04 07:44 | PROGRESS NOTE ---
DATE: 08/04/2018 SUBJECTIVE: The patient is a pleasant 43-year-old male, who is 5 days status post I and D for osteomyelitis of the right thumb. The patient also had positive blood cultures with septicemia with the MRSA. He is currently resting comfortably. PHYSICAL EXAMINATION: The patient is afebrile. Right upper extremity wound, the dressing was changed. The remaining packing was removed. The swelling has improved somewhat. He still continues with no sensation on his thumb. He has minimal movement of the IP joint. IMPRESSION: Postoperative day number 5, status post I and D right thumb. PLAN: At this point, patient will be maintained on his IV antibiotics per Dr. Hughes. We will have him follow up in the office in 1 week. cc: Uli Grady MD
[2018-08-04] MEDS: NICODERM PATCH TD SCH (09:02)
[2018-08-04] MEDS: PRILOSEC PO SCH (09:02)
[2018-08-04] MEDS: PERIDEX MT SCH (09:02)
[2018-08-04] MEDS: VANCOMYCIN 1,600 MG in NS 250 ML IV SCH (12:29)
--- NOTE | 2018-08-04 14:01 | INFECTIOUS DISEASE PROGRESS NO ---
DATE: 08/04/2018 PRESENT ILLNESS: The patient has an oxacillin sensitive Staph aureus right thumb osteomyelitis with an associated bacteremia. MEDICATIONS: This is the 4th day of treatment with vancomycin. Day 1 of treatment is the first day that the patient's blood cultures are sterile. This is day 4 of treatment with IV vancomycin. PHYSICAL EXAMINATION: Vital Signs: Temperature is 98.8 degrees, pulse 60, respirations 20, blood pressure 130/68. Generally: This is a fairly healthy-appearing, middle-aged male. He is in no acute distress. Head/eyes/ears/nose/throat: He can hear my spoken words and see near objects. He does not have any white patches on his tongue. Neck: No meningismus. Lungs: Clear to auscultation. Cardiovascular: Heart rate is regular. Abdomen: Soft and nontender. Extremities: The patient has a dressing on his right thumb. The dressing is intact. The patient has a PICC in place. The site is not bleeding or swollen. Neurologic: The patient is awake today. He can move his extremities. There is no tremor. LABORATORY AND X-RAY: There is no new lab or x-ray for today. ASSESSMENT AND PLAN: 1. Patient will need 8 weeks of vancomycin treatment for his methicillin- resistant Staph aureus osteomyelitis with an associated bacteremia. The patient's echocardiogram did not show any evidence of endocarditis. The patient will go to [place] outpatient clinic his vancomycin doses. 2. 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 I have ordered that a CBC and creatinine be done now and with the results to be communicated to me. cc: Temo Hughes MD MTDD
[2018-08-04 14:10] LABS: BASO# 0.14 X1000 (0.0-0.2); BASO% 1.5 % (0.0-0.8); EOS# 0.37 X1000 (0.0-0.7); EOS% 3.8 % (0.0-10.0); HEMATOCRIT 41.2 % (42.0-52.0); HEMOGLOBIN 13.7 g/dL (14.0-18.0); IMM GRAN# 0.09 X1000 (0.0-0.04); IMM GRAN% 0.9 % (0.0-0.5); LYMPH# 1.66 X1000 (1.2-3.4); LYMPH% 17.2 % (20.5-51.1); MCH 32.5 PG (27-31); MCHC 33.3 g/dL (33-37); MCV 97.6 FL (81-99); MONO# 0.82 X1000 (0.11-0.59); MONO% 8.5 % (1.7-9.3); MPV 9.8 FL (7.4-10.4); NEUT# 6.55 X1000 (1.4-6.5); NEUT% 68.1 % (42.2-75.2); PLT 407 X1000 (130-400); RBC 4.22 XMIL (4.7-6.1); RDW 12.3 % (11.5-14.5); WBC 9.63 X1000 (4.8-10.8)
[2018-08-04 16:10] VITALS: BP 132/72
--- NOTE | 2018-08-04 16:57 | INFECTIOUS DISEASE PROGRESS NO ---
DATE: 08/04/2018 The patient's laboratory studies for today show a CBC with a white count of 9630, hemoglobin 13.7, and platelet count of 407,000. Creatinine is 0.8. I did discuss with the patient that he will be going to [place] for both of his doses of vancomycin. I also told the patient that the vancomycin can cause rash or renal toxicity or ototoxicity in words he could understand and to notify me if he has any problems. I will be following the patient in the office. cc: Temo Hughes MD
[2018-08-04] MEDS: OXY IR PO PRN (20:38)
--- NOTE | 2018-08-05 05:20 | DISCHARGE SUMMARY ---
ADMISSION DATE: 07/29/2018 DISCHARGE DATE: 08/04/2018 FOLLOWUP: 1. Dr. Hughes. 2. Dr. Grady. CONSULTATION DURING THIS ADMISSION: 1. Orthopedics was consulted. Patient was seen by Dr. Grady. 2. Infectious Disease was consulted. Patient was seen by Dr. Hughes. INVASIVE PROCEDURES DONE DURING THIS ADMISSION: I and D of the right thumb was done by Dr. Grady on 07/30/2018. ADMISSION DIAGNOSIS: Possible osteomyelitis of right thumb. DIAGNOSES AT THE TIME OF DISCHARGE: 1. Sepsis on presentation secondary to right thumb infection. 2. Methicillin-resistant Staphylococcus aureus bacteremia due to right thumb infection. 3. Osteomyelitis of right thumb associated with periosteal abscess and cellulitis, status post incision and drainage. 4. Tobacco abuse. 5. Clinical volume depletion, improved. DISCHARGE MEDICATIONS: 1. Omeprazole 40 mg daily. 2. Oxycodone IR 5 mg p.o. q.4 to 6. 3. Vancomycin dose and the length of therapy to be determined by infectious disease. PATIENT'S PRESENTING COMPLAINT: Infection of the right thumb. HISTORY OF PRESENTING COMPLAINT: Mr. Hansen is a 43-year-old male with no past medical history, came to the emergency department because of pain and swelling to the right thumb. 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 He sustained an injury at the workplace, and he was given some oral antibiotics, but it appears that has not really helped, so he came to the emergency department, where he was evaluated and initial x-rays did reveal a possible osteomyelitis. The patient was admitted for further medical care. HOSPITAL COURSE: The patient was admitted to the medical floor, was hydrated adequately, started on IV antibiotics. Cultures were done, and Orthopedics was consulted. The patient was seen by Dr. Mendez and was sent to OR for ID and debridement of bone. The patient tolerated the procedure very well. During the hospital course, both the blood cultures and the thumb surgical specimen all grew Staph aureus (MRSA). Subsequent blood cultures have come back negative. The patient got a PICC line. He was also seen by Dr. Hughes, Infectious Disease. He is going to determine how long the patient is going to take IV antibiotics for Today, Mr. Hansen is fairly stable. He is no more having any symptoms except his right arm wound. HIS CURRENT VITALS: Blood pressure is 130/68, pulse is 60, respirations 20, temperature is 98.8 degrees. Clinically stable for discharge. All the discharge instructions have been discussed with him. TIME SPENT FOR DISCHARGE: 37 minutes. The patient is advised to come to the emergency department if he has any changes in his current medical state. cc: MD Bennie Rosas MD
== END 2018-08-04 20:44 | disposition home or self-care (01) | DRG 854 ==
LOC: P.ED 14:36 → SUATTDRO 18:04 → P.EDIPHOLD 18:04 → 4N 07-30 17:10
PROVIDERS: ATTEND Internal Medicine
CPT/HCPCS: 36569; 73140; 73220; 80048; 80053; 80202; 82565; 85025; 85610; 85651; 86140; 87040; 87070; 87075; 87077; 87186; 90471; 90715; 93306; 94761; 94799; 96365; 96366; 96368; 96375; 99285; A9270; A9579; J0131; J1170; J1885; J2270; J2405; J2543; J3010; J3370; J3480; J7030; J7050; S0077